=== PATIENT | male | born 1975 | race Hispanic/Latino ===

== ENCOUNTER 2020-08-04 22:25 | Emergency (ER) | payer SELFPAY ==
[2020-08-05] MEDS ORDERED: IBUPROFEN 600 MG TAB PO ONE (07:52)
--- NOTE | 2020-08-05 08:17 | Emergency Department Report ---
Suture/Staple Removal - HPI Chief Complaint: Laceration/Recheck/Suture Stated Complaint: Patient presents for wound check he has multiple wounds to his left lower leg and above his knee they were all self-inflicted. Patient was seen at an outside hospital he states about 4 or 5 days ago in which he had ian and sutures. Patient already began taking out some of ian and sutures himself. He is brought in from [place] for wound check Time Seen by Provider: 08/05/20 07:17 ED Review of Systems ROS: Stated complaint: REMOVED SUTURES Other details as noted in HPI Comment: All other systems reviewed and negative Constitutional: denies: chills, fever ENT: denies: ear pain, throat pain Respiratory: denies: cough, orthopnea Cardiovascular: denies: chest pain Skin: other (C/O pain at the wound site mild redness) Neurological: denies: headache, weakness, numbness, paresthesias, abnormal gait ED Past Medical Hx - Past Medical History Previous Medical History?: Yes Hx Psychiatric Treatment: Yes (Bipolar, Major Depression, Explosive Personality Disorder) - Surgical History Past Surgical History?: Yes Additional Surgical History: Right wrist - Social History Smoking Status: Current Every Day Smoker Substance Use Type: None - Medications Home Medications: Home Medications Medication Instructions Recorded Confirmed Last Taken Type cephALEXin [Keflex] 500 mg PO Q8HR 7 Days #21 cap 08/05/20 Unknown Rx Suture Removal Exam - Exam General: Vital signs noted. No distress. Alert and acting appropriately. Wound: Yes Pathologic Erythema, Yes Tenderness, Yes Wound Dehiscence, No Drainage, No Pus Other Systems: All other systems reviewed and are unremarkable. 45-year-old male he has multiple self-inflicted wound to his left lower thigh and the left lower leg. He was seen at an outside facility and wounds were sutured and stapled . patient states he was attempting to remove some of the ian and sutures on his own these sutures . He is a resident of [place] [facility]. Patient brought here for wound evaluation there there is no drainage noted no warmth but there is some mild redness to his anterior left lower leg. No pedal edema distal pulses intact ED Course Vital Signs 08/04/20 23:47 Temperature 97.9 F Pulse Rate 93 H Respiratory 20 Rate Blood Pressure 94/63 O2 Sat by Pulse 97 Oximetry - Reevaluation(s) Reevaluation #1: 08/05/20 17:40 [place] and sutures removed with ease areas of the wound dehiscence Steri-Strips applied wound was cleansed and clean dry dressing applied. I instruct patient to keep wound clean and dry and not to remove Steri-Strips or play with his wounds patient verbalizes understanding ED Recheck MDM - Differential Diagnosis Wound Recheck, Suture/Staple Removal - Medical Decision Making 45-year-old psychiatric patient who was treated for self-inflicted wounds at an outside facility. Patient had been removing ian and stitches on his own. I remove all ian and stitches, multiple wounds are fairly healed. a portion to the left calf that there is wound dehiscence the site was cleansed and Steri- Strips applie. Mild redness noted to the anterior left lower leg. I encourage patient to keep wound clean and dry and prescribed antibiotic Critical Care Time: No Critical care attestation.: If time is entered above; I have spent that time in minutes in the direct care of this critically ill patient, excluding procedure time. ED Disposition Clinical Impression: Encounter for removal of sutures, Visit for wound check, Wound infection Disposition: DC-01 TO HOME OR SELFCARE Is pt being admited?: No Does the pt Need Aspirin: No Condition: Stable Instructions: Wound Closure Removal, Care After Additional Instructions: keep wound clean and dry. Wash daily with soap and water and pat dry. Okay to apply Neosporin ointment once a day. Follow-up for any worsening redness increasing swelling pain or drainage. Prescriptions: cephALEXin [Keflex] 500 mg PO Q8HR 7 Days #21 cap Referrals: PRIMARY MD VASU [Primary Care Provider] - 3-5 Days MIGDALIA BOCANEGRA MD [Staff Physician] - 3-5 Days Time of Disposition: 08:25
[2020-08-05 08:21] VITALS: BP 110/82
== END 2020-08-05 08:43 | disposition home or self-care (01) ==
LOC: ED 22:25
DX: L08.89 Other specified local infections of the skin and subcutaneous tissue (principal); F31.9 Bipolar disorder, unspecified; F17.200 Nicotine dependence, unspecified, uncomplicated; Z88.8 Allergy status to other drugs, medicaments and biological substances
CPT/HCPCS: 99283

== ENCOUNTER 2020-08-05 20:03 | Emergency (ER) | payer SELFPAY ==
[2020-08-05 20:34] VITALS: BP 101/65
--- NOTE | 2020-08-05 20:38 | Emergency Department Report ---
Chief Complaint: Wound/Laceration Stated Complaint: WOUND CHECK - HPI History of Present Illness: The patient was evaluated in the emergency department for symptoms described in the history of present illness. He/she was evaluated in the context of the global COVID-19 pandemic, which necessitated consideration that the patient might be at risk for infection with the virus that causes COVID-19. Institutional protocols and algorithms that pertain to the evaluation of patients at risk for COVID-19 are in a state of rapid change based on information released by regulatory bodies including the CDC and federal and state organizations. These policies and algorithms were followed during the p chirag's care in the emergency department. Please note that these policies, procedures and recommendations changed on a rapid basis. 45-year-old male presents to the emergency room states that he was sent over by [facility] to be evaluated for his wounds. Patient was seen this morning and discharge with suture removal and placed on Keflex and pain medication. Patient comes back less than 12 hours for the same complaint. - Exam Physical Exam: Patient is alert and oriented no acute distress anxious and walking. Bilateral lower extremities multiple abrasions and cuts. No discharge mild swelling mild erythematous Steri-Strips are in place. Lungs no accessory muscles use Ambulatory without difficulties. MSE screening note: Focused history and physical exam performed. Due to findings the following was ordered: 45-year-old male presents to the emergency room states that he was sent over by [facility] to be evaluated for his wounds. Patient was seen this morning and discharge with suture removal and placed on Keflex and pain medication. Patient comes back less than 12 hours for the same complaint. ED Disposition for MSE Disposition: MED SCREENING EXAM-LEFT Is pt being admited?: No Does the pt Need Aspirin: No Condition: Stable Additional Instructions: Complete antibiotics that was prescribed to you this morning take your pain medication and follow-up with your primary care provider. Referrals: MARTI LEONE MD [Primary Care Provider] - 3-5 Days [facility] [Provider Group] - 3-5 Days
== END 2020-08-05 22:00 | disposition left against medical advice (07) ==
LOC: ED 20:03
DX: Z53.21 Procedure and treatment not carried out due to patient leaving prior to being seen by health care provider (principal)

== ENCOUNTER 2022-05-06 14:29 | Emergency (ER) | payer MEDICAID ==
--- NOTE | 2022-05-06 15:43 | Emergency Department Report ---
ED Psych HPI - General Chief Complaint: Wound/Laceration Stated Complaint: R WRIST LACERATION Time Seen by Provider: 05/06/22 15:30 Source: patient, EMS Mode of arrival: Ambulatory - History of Present Illness Initial Comments: 47 yo M with h/o anxiety and bipolar with schizophrenia sent in from Psychiatry facility for evaluation of his SI and laceration evaluation. Pt according to the facility he was admitted to their facility 3 days ago for SI but decided to remove his 12 cm linear into muscle laceration on his right anterior forearm living the wound wide open. No bleeding reported. pt also have 2 cm suture opened on his left anterior thigh. No fever or chills reported. Pt confirmed been suicide but denies any homicidal ideation. No other modifying or associated factors. - Related Data Previous Rx's Medication Instructions Recorded Last Taken Type cephALEXin [Keflex] 500 mg PO Q8HR 7 Days #21 cap 08/05/20 Unknown Rx Allergies Allergy/AdvReac Type Severity Reaction Status Date / Time chlorpromazine Allergy Hives Verified 08/05/20 20:36 [From Thorazine] haloperidol [From Haldol] Allergy Hives Verified 08/05/20 20:37 ziprasidone [From Geodon] Allergy Hives Verified 08/05/20 20:37 ED Review of Systems ROS: Stated complaint: R WRIST LACERATION Other details as noted in HPI Comment: All other systems reviewed and negative Skin: other (12 cm linear laceration on right forearm ) Psychiatric: suicidal thoughts ED Past Medical Hx - Past Medical History Hx Psychiatric Treatment: Yes (Bipolar, Major Depression, Explosive Personality Disorder) - Surgical History Additional Surgical History: Right wrist - Social History Smoking Status: Never Smoker Substance Use Type: None - Medications Home Medications: Home Medications Medication Instructions Recorded Confirmed Last Taken Type cephALEXin [Keflex] 500 mg PO Q8HR 7 Days #21 cap 08/05/20 Unknown Rx ED Physical Exam - General Limitations: No Limitations General appearance: alert, in no apparent distress - Head Head exam: Present: normal inspection - Eye Eye exam: Present: normal appearance Pupils: Present: normal accommodation - ENT ENT exam: Present: normal exam, normal orophraynx, mucous membranes moist - Neck Neck exam: Present: normal inspection, full ROM. Absent: tenderness - Respiratory Respiratory exam: Present: normal lung sounds bilaterally. Absent: respiratory distress, accessory muscle use - Cardiovascular Cardiovascular Exam: Present: regular rate, normal rhythm - GI/Abdominal GI/Abdominal exam: Present: soft, normal bowel sounds. Absent: distended, tend erness - Extremities Exam Extremities exam: Present: other (12 cm linear laceration on right forearm ) - Back Exam Back exam: Present: normal inspection - Neurological Exam Neurological exam: Present: alert, oriented X3 - Psychiatric Psychiatric exam: Present: normal affect, normal mood - Skin Skin exam: Present: warm, normal color ED Course Vital Signs 05/06/22 14:29 Temperature 98.6 F Pulse Rate 70 Respiratory 16 Rate Blood Pressure 114/70 [Left] O2 Sat by Pulse 99 Oximetry ED Medical Decision Making - Medical Decision Making Here with suicidal thought and attempt by cutting open his old sutures--differential diagnosis, including but not limited to: Encounter for behavioral health screening examination, encounter for medical screening examination--Due to these will go ahead and other routine labs studies including CBC, CMP and UA with UDS and thyroid profile in anticipation for mental health evaluation. Assessment and plan: here with concern with depressive feeling and suicidal ideation --but noted with reassuring vital signs, in no acute distress, who is cooperative, ANO x3, not homicidal but suicidal. At this point in time, this patient is cleared medically for psychiatry evaluation and recommendation. I will go ahead and order a 1013. He has not demonstrated any witnessed behavior here in the ED that would be consistent with acute decompensated psychosis. I have ordered mental health evaluation. Will go ahead and order typical laboratory studies in anticipation of mental health requests. Laboratory studies are reviewed and are unremarkable at this time. Awaiting mental health consultation and evaluation. Ultimate disposition as per mental health team. At this point in time, this patient does not appear to have an immediate medical contraindication to psychiatric admission, evaluation, consultation and placement. Patient has had his 1013 filled out by myself. Holding orders initiated. COVID swab ordered in anticipation of psychiatric placement. As needed medications are ordered. Patient remained suitable at this time for psychiatric placement, consultation and disposition. He does not appear to have an emergent medical condition present at this time. Critical care attestation.: If time is entered above; I have spent that time in minutes in the direct care of this critically ill patient, excluding procedure time. ED Disposition Clinical Impression: Suicide ideation, Suicide attempt Disposition: 30 STILL A PATIENT Is pt being admited?: No Does the pt Need Aspirin: No Condition: Stable
[2022-05-06 17:50] LABS: Alanine Aminotransferase 25 units/L (7-56); Albumin 4.1 g/dL (3.9-5); Blood Urea Nitrogen 13 mg/dL (9-20); Calcium 9.1 mg/dL (8.4-10.2); Hemolysis Index 117
[2022-05-06 17:56] LABS: BUN/Creatinine Ratio 19
[2022-05-06 17:59] LABS: Basophils % (Auto) 0.3 % (0.0-1.8); Eosinophils # (Auto) 0.1 K/mm3 (0.0-0.4); Eosinophils % (Auto) 0.6 % (0.0-4.3); Hematocrit 39.4 % (35.5-45.6); Hemoglobin 13.1 gm/dl (11.8-15.2); Lymphocytes # (Auto) 1.6 K/mm3 (1.2-5.4); Lymphocytes % (Auto) 15.1 % (13.4-35.0); Mean Corpuscular HGB Conc 33 % (32-34); Mean Corpuscular Volume 91 fl (84-94); Monocytes # (Auto) 0.6 K/mm3 (0.0-0.8); Monocytes % (Auto) 5.4 % (0.0-7.3); Platelet Count 327 K/mm3 (140-440); Red Blood Count 4.34 M/mm3 (3.65-5.03); Red Cell Distribution Width 13.5 % (13.2-15.2)
[2022-05-06 18:00] LABS: Free T4 (Free Thyroxine) 0.81 ng/dL (0.76-1.46)
[2022-05-06 18:06] LABS: INR 0.98 (0.87-1.13)
[2022-05-06 18:07] LABS: Partial Thromboplastin Time 31.8 Sec. (24.2-36.6)
[2022-05-06] MEDS ORDERED: clonazePAM 0.5 MG TAB PO ONE (18:32)
[2022-05-06 19:07] LABS: Amphetamine Screen,Urine Negative; Benzodiazepines Screen,Urine Negative; Cannabinoid Screen,Urine Negative; Cocaine Screen,Urine Negative; Methadone Screen,Urine Negative; Opiate Screen,Urine Negative
[2022-05-06 20:10] LABS: Mucus,Urine FEW /HPF
[2022-05-06 20:42] LABS: Blood,Urine Negative (Negative); Color,Urine Straw (Yellow); Urobilinogen,Urine < 2.0 mg/dL (<2.0)
[2022-05-06 20:43] LABS: RBC,Urine < 1.0 /HPF (0.0-6.0)
[2022-05-07] MEDS ORDERED: IBUPROFEN 800 MG TAB PO ONE (10:03)
--- NOTE | 2022-05-07 11:07 | Consultation ---
History of Present Illness - Reason for Consult Consult date: 05/07/22 Reason for consult: Mental Health Evaluation - History of Present Psychiatric Illness - History of Present Psychiatric Illness Per ED Notes: 47 yo M with h/o anxiety and bipolar with schizophrenia sent in from Psychiatry facility for evaluation of his SI and laceration evaluation. Pt according to the facility he was admitted to their facility 3 days ago for SI but decided to remove his 12 cm linear into muscle laceration on his right anterior forearm living the wound wide open. No bleeding reported. pt also have 2 cm suture opened on his left anterior thigh. No fever or chills reported. Pt confirmed been suicide but denies any homicidal ideation. No other modifying or associated factors. This patient is a 47Y male with a history of anxiety, bipolar, schizophrenia and explosive personality disorder. The patient presents to the ED for evaluation. The patient was seen today. He presents with anxiety, asking for ,"klonopin." The patient reports history of self-harm by cutting. The patient is impulsive and reports triggers as feeling guilty about his mother's . The patient denies suicidal/homicidal ideation and denies hallucinations. Will continue recommending inpatient due to recent self-harm attempt. PAST PSYCHIATRIC HISTORY Diagnoses: MDD, ADHD, Bipolar, Explossive personality disorder Suicide attempts or Self-harm behavior: Multiple Prior psychiatric hospitalizations: Multiple Substance Abuse history: Alcohol Previous psychiatric medications tried: Haldol, Geodon, Thorazine, Zyprexa, Ativan Outpatient treatment: yes PAST MEDICAL HISTORY: None reported Family Psychiatric History: None reported or documented SOCIAL HISTORY Marital Status: single Living Arrangements: Homeless Employment Status: unemployed Access to guns/weapons: Denies Education: College History of Abuse: No Legal History: Denies REVIEW OF SYSTEMS Constitutional: Negative for weight loss ENT: Negative for stridor Respiratory: Negative for cough or hemoptysis All other systems reviewed and are negative MENTAL STATUS EXAMINATION General Appearance and Behavior: Age appropriate, good hygiene, wearing appropriate clothes, good eye contact, calm, cooperative Cooperation: Participating/engaged Psychomotor Behavior: Psychomotor normal Mood: Depressed, anxious Affect and affective range: congruent with stated mood Thought Process: goal directed Thought Content: Reality Oriented Speech: Normal tone and pace Suicidal Ideation: Denies Homicidal Ideation: Denies Hallucinations: Denies Delusions: None elicited Impulse Control: Normal Insight and Judgment: Limited insight and judgment Memory: Normal Attention: Attentive Orientation: Alert, oriented Assessment and Plan Bipolar Disorder Treatment Plan 1013 Continue home Meds Serequel 25mg Po BID, Seroquel 50mg Po QHS, Vistaril 50mg Po BID Risks, benefits and alternatives of medications discussed with the patient, questions answered and consent obtained from patient. PSYCHOTHERAPY: Supportive psychotherapy provided MEDICAL: Per primary team DELIRIUM PRECAUTIONS: Please re-orient patient frequently, keep lights on during the day, and minimize benzodiazepines and opiates as these medications could worsen patient's confusion. 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 Will follow. Thank you for the consult. Please contact with any questions and/or concerns. Case staffed with Dr. Reid Medications and Allergies Medications and Allergies Allergies Allergy/AdvReac Type Severity Reaction Status Date / Time chlorpromazine Allergy Hives Verified 08/05/20 20:36 [From Thorazine] haloperidol [From Haldol] Allergy Hives Verified 08/05/20 20:37 ziprasidone [From Geodon] Allergy Hives Verified 08/05/20 20:37 Home Medications Medication Instructions Recorded Confirmed Last Taken Type cephALEXin [Keflex] 500 mg PO Q8HR 7 Days #21 cap 08/05/20 Unknown Rx Mental Status Exam - Vital signs Last Vital Signs Temp 98.2 F 05/07/22 09:02 Pulse 84 05/07/22 09:02 Resp 18 05/07/22 09:02 BP 114/71 05/07/22 09:02 Pulse Ox 100 05/07/22 09:03 Results Result Diagrams: 05/06/22 16:10 05/06/22 16:10 Abnormal lab results 05/06/22 05/06/22 05/06/22 Range/Units 16:10 16:10 16:10 Seg Neutrophils % 78.6 H (40.0-70.0) % Seg Neutrophils # 8.5 H (1.8-7.7) K/mm3 Creatinine 0.7 L (0.8-1.3) mg/dL Glucose 66 L (75-100) mg/dL Lactic Acid (0.7-2.0) mmol/L AST 50 H (5-40) units/L TSH (0.270-4.200) mlU/mL Salicylates < 0.3 L (2.8-20.0) mg/dL Acetaminophen (10.0-30.0) ug/mL 05/06/22 05/06/22 05/06/22 Range/Units 16:10 16:10 16:10 Seg Neutrophils % (40.0-70.0) % Seg Neutrophils # (1.8-7.7) K/mm3 Creatinine (0.8-1.3) mg/dL Glucose (75-100) mg/dL Lactic Acid 2.70 H* (0.7-2.0) mmol/L AST (5-40) units/L TSH 0.234 L (0.270-4.200) mlU/mL Salicylates (2.8-20.0) mg/dL Acetaminophen 5.0 L (10.0-30.0) ug/mL 05/06/22 Range/Units 20:53 Seg Neutrophils % (40.0-70.0) % Seg Neutrophils # (1.8-7.7) K/mm3 Creatinine (0.8-1.3) mg/dL Glucose (75-100) mg/dL Lactic Acid 2.60 H* (0.7-2.0) mmol/L AST (5-40) units/L TSH (0.270-4.200) mlU/mL Salicylates (2.8-20.0) mg/dL Acetaminophen (10.0-30.0) ug/mL All other labs normal.
[2022-05-07] MEDS: hydrOXYzine PAMOATE 25 MG CAP PO SCH (11:48)
[2022-05-07] MEDS: QUEtiapine 25 MG TAB PO SCH (14:11)
--- NOTE | 2022-05-07 21:51 | Emergency Department Report ---
Blank Doc - Documentation Documentation: 47-year-old male patient here for suicidal ideations, and self injury. Patient is on a 1013, and has been referred to inpatient psychiatric facilities. There have been no acute issues during my shift.
[2022-05-07] MEDS ORDERED: QUEtiapine 25 MG TAB PO SCH (22:00)
[2022-05-08 08:49] VITALS: BP 96/55
--- NOTE | 2022-05-08 09:50 | Progress Note ---
Subjective - Reason for Consult Consult date: 05/08/22 Reason for consult: mental health evaluation - Chief Complaint Chief complaint: The patient was seen today. He reports doing doing well. the patient states he needs to go get check, see his administrative officer and to find a place to live. The patient is med seeking requesting for Ativan. He denies any current suicidal/homicidal ideation and denies hallucinations. REVIEW OF SYSTEMS Constitutional: Negative for weight loss ENT: Negative for stridor Respiratory: Negative for cough or hemoptysis All other systems reviewed and are negative MENTAL STATUS EXAMINATION General Appearance and Behavior: Age appropriate, good hygiene, wearing appropriate clothes, good eye contact, calm, cooperative Cooperation: Participating/engaged Psychomotor Behavior: Psychomotor normal Mood:calm Affect and affective range: congruent with stated mood Thought Process: goal directed Thought Content: Reality Oriented Speech: Normal tone and pace Suicidal Ideation: Denies Homicidal Ideation: Denies Hallucinations: Denies Delusions: None elicited Impulse Control: Normal Insight and Judgment: Limited insight and judgment Memory: Normal Attention: Attentive Orientation: Alert, oriented Assessment and Plan Bipolar Disorder Treatment Plan [id number] Case management Continue home Meds Continue Seroquel 50mg Po QHS, Vistaril 50mg Po BID Risks, benefits and alternatives of medications discussed with the patient, questions answered and consent obtained from patient. PSYCHOTHERAPY: Supportive psychotherapy provided MEDICAL: Per primary team DELIRIUM PRECAUTIONS: Please re-orient patient frequently, keep lights on during the day, and minimize benzodiazepines and opiates as these medications could worsen patient's confusion. 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 Quality Assurance Supervisor Final will provide patient with psychiatric outpatient resources and safety plan. Will sign off. Thank you for the consult. Please contact with any questions and/or concerns. Case staffed with Dr. Reid Medications and Allergies Mental Status Exam - Vital signs Last Vital Signs Temp 98.2 F 05/08/22 08:48 Pulse 78 05/08/22 08:48 Resp 16 05/08/22 08:48 BP 96/55 05/08/22 08:48 Pulse Ox 99 05/08/22 08:49
[2022-05-08] MEDS: QUEtiapine 25 MG TAB PO SCH (09:51)
[2022-05-08] MEDS: hydrOXYzine PAMOATE 25 MG CAP PO SCH (09:52)
--- NOTE | 2022-05-08 12:51 | Emergency Department Report ---
Blank Doc - Documentation Documentation: This is a 47-year-old male who was being evaluated in the emergency department for suicidal ideations and self-harm. Patient has been evaluated by psychiatry, and has been cleared to be discharged home. There has been no acute issues during his ED visit, so I will resend his 1013 and discharge patient. Resources have been placed in the patient's chart for follow-up.
== END 2022-05-08 14:03 | disposition home or self-care (01) ==
LOC: EEVIPCON 14:29 → ED 14:29
DX: R45.851 Suicidal ideations (principal); Z20.822 Contact with and (suspected) exposure to COVID-19; R79.1 Abnormal coagulation profile; Z88.8 Allergy status to other drugs, medicaments and biological substances; Z79.899 Other long term (current) drug therapy
CPT/HCPCS: 36415; 80053; 80307; 81001; 82140; 84439; 84443; 84484; 85025; 85610; 85730; 99285; U0003; 80320; G0480

== ENCOUNTER 2022-05-12 23:01 | Emergency (ER) | payer MEDICAID ==
[2022-05-13 00:17] LABS: Basophils % (Auto) 0.7 % (0.0-1.8); Eosinophils # (Auto) 0.2 K/mm3 (0.0-0.4); Eosinophils % (Auto) 2.7 % (0.0-4.3); Hematocrit 30.8 % (35.5-45.6); Hemoglobin 10.5 gm/dl (11.8-15.2); Lymphocytes # (Auto) 2.2 K/mm3 (1.2-5.4); Lymphocytes % (Auto) 29.3 % (13.4-35.0); Mean Corpuscular HGB Conc 34 % (32-34); Mean Corpuscular Volume 91 fl (84-94); Monocytes # (Auto) 0.4 K/mm3 (0.0-0.8); Monocytes % (Auto) 5.9 % (0.0-7.3); Platelet Count 336 K/mm3 (140-440); Red Cell Distribution Width 13.9 % (13.2-15.2)
[2022-05-13 00:30] LABS: Blood Urea Nitrogen 12 mg/dL (9-20); Calcium 8.4 mg/dL (8.4-10.2); Hemolysis Index 7
[2022-05-13 00:31] LABS: BUN/Creatinine Ratio 20
--- NOTE | 2022-05-13 03:35 | Emergency Department Report ---
ED Psych HPI - General Chief Complaint: Psych Stated Complaint: RT ARM LACERATION Time Seen by Provider: 05/13/22 02:11 Source: patient, EMS Mode of arrival: Ambulatory - History of Present Illness Initial Comments: 47-year-old male with history of bipolar disorder, major depressive disorder, explosive personality disorder presents to the emergency department complaining of severe pain in his right forearm for several days. Patient had attempted suicide and had a long laceration of the right forearm, but after sutures were placed, the patient opened up stitches. Patient reports that he is still suicidal, and cannot give a time of onset of his suicidal ideations, stating that he is always suicidal. Patient believes that he is destabilized, as when he was discharged, from here, he was discharged without his medication. Patient states that he has a plan to lay on the train tracks as a suicide attempt. Patient reports that his new stressors is that he does not have his medications, pain, and believes that he is not being taken care of. Patient believes that with pain relief and his medications, that his symptoms would improve. Patient denies hallucinations or homicidal ideations. - Related Data Previous Rx's Medication Instructions Recorded Last Taken Type cephALEXin [Keflex] 500 mg PO Q8HR 7 Days #21 cap 08/05/20 Unknown Rx Quetiapine Fumarate [SEROquel] 50 mg PO QHS 7 Days #7 tab 05/08/22 Unknown Rx hydrOXYzine PAMOATE [Vistaril] 50 mg PO BID 7 Days #14 cap 05/08/22 Unknown Rx Allergies Allergy/AdvReac Type Severity Reaction Status Date / Time chlorpromazine Allergy Hives Verified 08/05/20 20:36 [From Thorazine] haloperidol [From Haldol] Allergy Hives Verified 08/05/20 20:37 ziprasidone [From Geodon] Allergy Hives Verified 08/05/20 20:37 ED Review of Systems ROS: Stated complaint: RT ARM LACERATION Other details as noted in HPI Comment: All other systems reviewed and negative Constitutional: denies: chills, fever Eyes: denies: eye pain, eye discharge, vision change ENT: denies: ear pain, throat pain Respiratory: denies: cough, shortness of breath, wheezing Cardiovascular: denies: chest pain, palpitations Endocrine: no symptoms reported Gastrointestinal: denies: abdominal pain, nausea, diarrhea Genitourinary: denies: urgency, dysuria Musculoskeletal: myalgia. denies: back pain, joint swelling, arthralgia Skin: other (Open wound to the right forearm on the palmar side). denies: rash, lesions Neurological: denies: headache, weakness, paresthesias Psychiatric: as per HPI, suicidal thoughts. denies: anxiety, depression, auditory hallucinations, visual hallucinations, homicidal thoughts Hematological/Lymphatic: denies: easy bleeding, easy bruising ED Past Medical Hx - Past Medical History Previous Medical History?: Yes Hx Psychiatric Treatment: Yes (Bipolar, Major Depression, Explosive Personality Disorder) - Surgical History Past Surgical History?: Yes Additional Surgical History: Right wrist. abdomen - Social History Smoking Status: Never Smoker Substance Use Type: None - Medications Home Medications: Home Medications Medication Instructions Recorded Confirmed Last Taken Type cephALEXin [Keflex] 500 mg PO Q8HR 7 Days #21 cap 08/05/20 Unknown Rx Quetiapine Fumarate [SEROquel] 50 mg PO QHS 7 Days #7 tab 05/08/22 Unknown Rx hydrOXYzine PAMOATE [Vistaril] 50 mg PO BID 7 Days #14 cap 05/08/22 Unknown Rx ED Physical Exam - General Limitations: No Limitations General appearance: alert, in no apparent distress, other (Witnessed several times sleeping comfortably.) - Head Head exam: Present: atraumatic, normocephalic - Eye Eye exam: Present: normal appearance, PERRL, EOMI - ENT ENT exam: Present: normal exam, mucous membranes moist - Neck Neck exam: Present: normal inspection, full ROM - Respiratory Respiratory exam: Present: normal lung sounds bilaterally. Absent: respiratory distress, wheezes - Cardiovascular Cardiovascular Exam: Present: normal rhythm, tachycardia. Absent: systolic murmur, diastolic murmur, rubs, gallop - GI/Abdominal GI/Abdominal exam: Present: soft, normal bowel sounds - Rectal Rectal exam: Present: deferred - Extremities Exam Extremities exam: Present: normal inspection, tenderness (Right forearm tenderness), other (13 cm open wound to the right forearm without erythema, purulent drainage, or other signs of infection) - Back Exam Back exam: Present: normal inspection - Neurological Exam Neurological exam: Present: alert, oriented X3 - Psychiatric Psychiatric exam: Present: depressed, flat affect, suicidal ideation, other (appears angry) - Skin Skin exam: Present: warm, dry, intact, normal color. Absent: rash ED Course Vital Signs 05/12/22 23:27 Temperature 98.5 F Pulse Rate 110 H Respiratory 18 Rate Blood Pressure 150/68 [Right] O2 Sat by Pulse 99 Oximetry - Reevaluation(s) Reevaluation #1: 05/13/22 03:43 Patient is medically cleared for psychiatric evaluation. ED Medical Decision Making - Lab Data Result diagrams: 05/12/22 23:55 05/12/22 23:55 - Differential Diagnosis Impulse control problem, malingering, suicidal ideation, wound infection Critical care attestation.: If time is entered above; I have spent that time in minutes in the direct care of this critically ill patient, excluding procedure time. ED Disposition Clinical Impression: Suicide ideation Open wound of right forearm Qualifiers: Encounter type: sequela Qualified Code(s): S51.801S - Unspecified open wound of right forearm, sequela Disposition: 30 STILL A PATIENT Is pt being admited?: No Condition: Stable Referrals: MIGDALIA BOCANEGRA MD [Primary Care Provider] - 3-5 Days
[2022-05-13] MEDS ORDERED: cephALEXin 500 MG CAP PO ONE (03:36)
[2022-05-13] MEDS ORDERED: IBUPROFEN 800 MG TAB PO ONE (03:37)
[2022-05-13 11:00] VITALS: BP 111/81
--- NOTE | 2022-05-13 11:06 | Progress Note ---
Subjective - Reason for Consult Consult date: 05/13/22 Reason for consult: alcohol/benzo use - Chief Complaint Chief complaint: The patient was seen today. His symptoms are vague. The patient says he is here because his arm got infected. He says he was here last week and didn't get any antibiotics. The patient says "I need something for this infection in my arm." The patient is also asking for medication for alcohol and benzo withdrawals. He says he drinks "12 to 20 cans of tall boys daily." He says "I need something to help me with alcohol and benzos." He denies hallucinations. When asking the patient about S/HI. He says "not really, but it is what it is." I ask him what did he mean by that, he says "I don't know. I don't feel like talking." REVIEW OF SYSTEMS Constitutional: Negative for weight loss ENT: Negative for stridor Respiratory: Negative for cough or hemoptysis All other systems reviewed and are negative MENTAL STATUS EXAMINATION General Appearance and Behavior: Age appropriate, good hygiene, wearing appropriate clothes, good eye contact, calm, cooperative Cooperation: Participating/engaged Psychomotor Behavior: Psychomotor normal Mood:calm Affect and affective range: congruent with stated mood Thought Process: goal directed Thought Content: Reality Oriented Speech: Normal tone and pace Suicidal Ideation: Denies Homicidal Ideation: Denies Hallucinations: Denies Delusions: None elicited Impulse Control: Normal Insight and Judgment: Limited insight and judgment Memory: Normal Attention: Attentive Orientation: Alert, oriented Assessment and Plan Alcohol Dependence with Intoxication Treatment Plan d/c 1013 Case management Vistari 50mg po x 1 Continue previously prescribed meds Risks, benefits and alternatives of medications discussed with the patient, questions answered and consent obtained from patient. PSYCHOTHERAPY: Supportive psychotherapy provided MEDICAL: Per primary team DELIRIUM PRECAUTIONS: Please re-orient patient frequently, keep lights on during the day, and minimize benzodiazepines and opiates as these medications could worsen patient's confusion. 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 [facility] will provide patient with psychiatric outpatient resources and safety plan. Will sign off. Thank you for the consult. Please contact with any questions and/or concerns. Case staffed with Dr. Reid Mental Status Exam - Vital signs Last Vital Signs Temp 98.5 F 05/13/22 11:00 Pulse 75 08/15/22 11:00 Resp 18 05/13/22 11:00 BP 111/81 05/13/22 11:00 Pulse Ox 98 05/13/22 11:00
[2022-05-13] MEDS ORDERED: hydrOXYzine PAMOATE 25 MG CAP PO ONE (11:08)
== END 2022-05-13 13:08 | disposition still patient (30) ==
LOC: ED 23:01
DX: R45.851 Suicidal ideations (principal); S51.801A Unspecified open wound of right forearm, initial encounter; X58.XXXA Exposure to other specified factors, initial encounter; Y93.89 Activity, other specified; Y92.89 Other specified places as the place of occurrence of the external cause; Y99.8 Other external cause status; Z88.8 Allergy status to other drugs, medicaments and biological substances; F31.9 Bipolar disorder, unspecified
CPT/HCPCS: 36415; 80048; 80320; 85025; 99284; G0480